=== PATIENT | male | born 1970 | race Caucasian/White ===

== ENCOUNTER 2017-12-22 21:02 | Emergency (ER) | payer OTHER ==
[2017-12-22] MEDS ORDERED: BABY ASPIRIN 81 MG CHEW PO ONE (21:15)
[2017-12-22 21:37] LABS: BASOPHIL % 0.5 % (0.0-0.4); Basophil (Absolute #) 0.04 (0-0.4); Eosinophil % 4.3 % (0.00-5.0); Eosinophil (Absolute #) 0.37 (0-0.5); Granulocyte Absolute (ANC) 4.23 (1.4-6.9); Granulocytes % 49.8 % (36.0-66.0); Hematocrit 44.4 % (42-50); Hemoglobin 14.4 gm/dl (12.5-18.0); Lymphocyte (Absolute #) 2.93 (1.0-4.6); Lymphocytes % 34.4 % (24.0-44.0); Mean Corpuscular Hemoglobin 26.9 pg (26-32); Mean Corpuscular Hgb Concent. 32.4 g/dl (32-36); Mean Platelet Volume 10.6 fl (6-9.5); Monocyte (Absolute #) 0.94 (0.0-1.3); Platelet Count 248 K/mm3 (150-450); Red Blood Count 5.35 M/mm3 (4.1-5.6); White Blood Count 8.5 K/mm3 (4.0-10.5)
--- NOTE | 2017-12-22 21:40 | ERPHSYRPT ---
- History of Present Illness Time Seen by Provider: 12/22/17 21:36 Historian: patient Exam Limitations: no limitations Patient Subjective Stated Complaint: Chest Pain with radiation into left side of neck x2 days. Triage Nursing Assessment: Pt presents to the ED with complaints of chest pressure, center of chest x2 days with radiation into left side of neck. Pt states hx of chest pain but states pain does not normally radiate into neck. Pt denies SOB, Nausea or vomiting. Pt denies other pains or complaints at this time. Skin PWD, no distress noted. Physician History: This is a 47-year-old white male with history of high blood pressure diabetes, hyperlipidemia He arrives with complaint of intermittent pain in his left anterior chest described as "like somebody hit me with a hammer" also described as sharp intermittently occurring over the last week worse past 2 days it has been radiating up to the left side of his neck is no shortness of breath he does state he has some nausea. He states this occurred just prior to arrival and stopped shortly after arriving. Past medical history includes high blood pressure, diabetes he states he is not taking anything for this at this time and hyperlipidemia. Past surgical history includes cystoscopy, and urethral myotomy Social history occasional alcohol use former smoker denies illicit drugs. Activities at Onset: none Quality: sharpness, other (feels like hit with a hammer) Chest Pain Radiation: neck Severity of Pain-Max: moderate Severity of Pain-Current: none Modifying Factors: Improves With: other (patient feels like the pain has been occuring with activity lataly) Associated Symptoms: nausea, No vomiting, No palpitations, No heartburn, No abdominal pain, No shortness of breath, No cough, No hurts to breathe, No diaphoresis, No chills, No fever, No fatigue, No weakness, No swelling/lump in chest, No syncope, No rash, No headache, No dizziness, No edema, No back pain Nitro Today/Relief: no nitro taken today Aspirin Treatment Today: 81 mg x 4, provided by ED Allergies/Adverse Reactions: No Known Drug Allergies Allergy (Unverified 12/22/17 21:14) Home Medications: Amlodipine Besylate [Amlodipine Besylate] 10 mg PO DAILY 12/22/17 [History] Benazepril HCl [Benazepril HCl] 10 mg PO DAILY 12/22/17 [History] Tamsulosin HCl [Tamsulosin HCl] 0.4 mg PO DAILY 12/22/17 [History] Hx Tetanus, Diphtheria Vaccination/Date Given: No Hx Influenza Vaccination/Date Given: Yes Hx Pneumococcal Vaccination/Date Given: No Immunizations Up to Date: No - Review of Systems Constitutional: No Fever, No Chills Eyes: No Symptoms Ears, Nose, & Throat: No Symptoms Respiratory: No Cough, No Dyspnea Cardiac: Chest Pain Abdominal/Gastrointestinal: Nausea, No Abdominal Pain, No Vomiting, No Diarrhea , No Constipation, No Hematemesis, No Hematochezia, No Melena, No Dysphagia, No Appetite Changes Genitourinary Symptoms: No Dysuria Musculoskeletal: No Back Pain, No Neck Pain Skin: No Rash Neurological: No Dizziness, No Focal Weakness, No Sensory Changes Psychological: No Symptoms Endocrine: No Symptoms All Other Systems: Reviewed and Negative - Past Medical History Pertinent Past Medical History: Yes Neurological History: No Pertinent History ENT History: No Pertinent History Cardiac History: Hypertension Respiratory History: No Pertinent History Endocrine Medical History: Diabetes Type II Musculoskeletal History: No Pertinent History GI Medical History: No Pertinent History History: No Pertinent History Psycho-Social History: No Pertinent History Male Reproductive Disorders: No Pertinent History - Past Surgical History Past Surgical History: Yes Neuro Surgical History: No Pertinent History Cardiac: No Pertinent History Respiratory: No Pertinent History Gastrointestinal: No Pertinent History Genitourinary: No Pertinent History Musculoskeletal: Orthopedic Surgery Male Surgical History: No Pertinent History - Social History Smoking Status: Former smoker Exposure to second hand smoke: No Drug Use: none Patient Lives Alone: No - Nursing Vital Signs Nursing Vital Signs: Initial Vital Signs Temperature 98.0 F 12/22/17 21:06 Pulse Rate 73 12/22/17 21:06 Respiratory Rate 16 12/22/17 21:06 Blood Pressure 149/87 12/22/17 21:06 O2 Sat by Pulse Oximetry 100 12/22/17 21:06 Pain Scale Pain Intensity 0 - Physical Exam General Appearance: no apparent distress, alert Eye Exam: PERRL/EOMI, eyes nml inspection Ears, Nose, Throat Exam: normal ENT inspection, moist mucous membranes Neck Exam: normal inspection, non-tender, supple, full range of motion Respiratory Exam: normal breath sounds, lungs clear, No respiratory distress Cardiovascular Exam: regular rate/rhythm, normal heart sounds Gastrointestinal/Abdomen Exam: soft, No tenderness, No mass Back Exam: normal inspection, No CVA tenderness, No vertebral tenderness Extremity Exam: normal inspection, normal range of motion Neurologic Exam: alert, oriented x 3, cooperative, normal mood/affect, sensation nml, No motor deficits Skin Exam: normal color, warm, dry SpO2 Interpretation: normal (100%) SpO2: 100 Oxygen Delivery: Room Air - Course Nursing assessment & vital signs reviewed: Yes EKG Interpreted by Me: RATE (78 bpm), Sinus Rhythm, NORMAL AXIS, Other (EKG: Sinus rhythm, 78 bpm, normal axis, no acute ST or T wave changes, normal EKG) - Radiology Exams Chest X-ray Interpretation: Interpreted by me, Other (no acute disease process noted) Ordered Tests: Active Orders 24 hr Category Date Time Status Corporate Real Estate Manager STAT Care 12/22/17 21:16 Active EKG-ER Only STAT Care 12/22/17 21:15 Active EKG-ER Only STAT Care 12/23/17 01:26 Active IV Insertion STAT Care 12/22/17 21:15 Active CHEST 1 VIEW (PORTABLE) Stat Exams 12/22/17 21:16 Taken AMYLASE Stat Lab 12/22/17 21:31 Completed CBC W DIFF Stat Lab 12/22/17 21:31 Completed CMP Stat Lab 12/22/17 21:31 Completed D-DIMER QUANTITATION Stat Lab 12/22/17 21:31 Completed LIPASE Stat Lab 12/22/17 21:31 Completed NT PRO BNP Stat Lab 12/22/17 21:31 Completed TROPONIN Q3H Lab 12/22/17 21:31 Completed TROPONIN Q3H Lab 12/23/17 00:16 Completed TROPONIN Q3H Lab 12/23/17 03:30 Ordered TROPONIN Q3H Lab 12/23/17 06:30 Ordered TROPONIN Q3H Lab 12/23/17 09:30 Ordered Medication Summary Discontinued Medications Generic Name Dose Route Start Last Admin Trade Name Freq PRN Reason Stop Dose Admin Aspirin 324 mg 12/22/17 21:15 12/22/17 21:26 Baby Aspirin 81 Mg Chew PO 12/22/17 21:16 324 mg STAT ONE Administration Lab/Rad Data: Laboratory Result Diagrams 12/22/17 21:31 12/22/17 21:31 Laboratory Results 12/23/17 12/22/17 12/22/17 Range/Units 00:16 21:31 21:31 WBC (4.0-10.5) K/mm3 RBC (4.1-5.6) M/mm3 Hgb (12.5-18.0) gm/dl Hct (42-50) % MCV (78-100) fl MCH (26-32) pg MCHC (32-36) g/dl RDW (11.5-14.0) % Plt Count (150-450) K/mm3 MPV (6-9.5) fl Gran % (36.0-66.0) % Lymphocytes % (24.0-44.0) % Monocytes % (0.0-12.0) % Eosinophils % (0.00-5.0) % Basophils % (0.0-0.4) % Basophils # (0-0.4) D-Dimer 256.47 (215-500) ng/mL Sodium (137-145) mmol/L Potassium (3.5-5.1) mmol/L Chloride (98-107) mmol/L Carbon Dioxide (22-30) mmol/L Anion Gap (5-15) MEQ/L BUN (9-20) mg/dL Creatinine (0.66-1.25) mg/dL Estimated GFR ML/MIN Glucose (74-106) mg/dL Calcium (8.4-10.2) mg/dL Total Bilirubin (0.2-1.3) mg/dL AST (17-59) U/L ALT (0-50) U/L Alkaline Phosphatase (38-126) U/L Troponin I < 0.012 < 0.012 (0.000-0.034) ng/mL NT-Pro-B Natriuret Pep (0-450) pg/mL Serum Total Protein (6.3-8.2) g/dL Albumin (3.5-5.0) g/dL Amylase (30-110) U/L Lipase (23-300) U/L 14/18 /14/18 Range/Units 21:31 21:31 WBC 8.5 (4.0-10.5) K/mm3 RBC 5.35 (4.1-5.6) M/mm3 Hgb 14.4 (12.5-18.0) gm/dl Hct 44.4 (42-50) % MCV 83.0 (78-100) fl MCH 26.9 (26-32) pg MCHC 32.4 (32-36) g/dl RDW 13.0 (11.5-14.0) % Plt Count 248 (150-450) K/mm3 MPV 10.6 H (6-9.5) fl Gran % 49.8 (36.0-66.0) % Lymphocytes % 34.4 (24.0-44.0) % Monocytes % 11.0 (0.0-12.0) % Eosinophils % 4.3 (0.00-5.0) % Basophils % 0.5 (0.0-0.4) % Basophils # 0.04 (0-0.4) D-Dimer (215-500) ng/mL Sodium 142 (137-145) mmol/L Potassium 4.2 (3.5-5.1) mmol/L Chloride 104 (98-107) mmol/L Carbon Dioxide 26 (22-30) mmol/L Anion Gap 16.2 H (5-15) MEQ/L BUN 15 (9-20) mg/dL Creatinine 0.87 (0.66-1.25) mg/dL Estimated GFR > 60 ML/MIN Glucose 106 (74-106) mg/dL Calcium 9.6 (8.4-10.2) mg/dL Total Bilirubin 0.40 (0.2-1.3) mg/dL AST 57 (17-59) U/L ALT 92 H (0-50) U/L Alkaline Phosphatase 80 (38-126) U/L Troponin I (0.000-0.034) ng/mL NT-Pro-B Natriuret Pep 50.6 (0-450) pg/mL Serum Total Protein 8.1 (6.3-8.2) g/dL Albumin 4.6 (3.5-5.0) g/dL Amylase 61 (30-110) U/L Lipase 91 (23-300) U/L - Progress Progress: improved Air Movement: fair Progress Note: 12/22/17 23:03 This is a 47-year-old white male who has been having several days of intermittent pain in his anterior chest he has had pain radiating to his neck from the chest today. Pain was approximately half an hour prior to arrival today. Patient does not have any shortness of breath he did have some nausea. Patient's EKG chest x-ray and labs are negative patient is pain-free at this time he has been given aspirin 324 mg orally. I have discussed the whether the patient would stay 3 hours as needed for repeat troponin or considered discussing patient with patient's family doctor for consideration of observation for serial troponins The patient is not interested in observation at this time but is willing to stay for repeat troponin. Will plan to get 3 hours after last draw. Patient stable at this time 12/23/17 01:28 Patient with no further pain repeat troponin within normal limits. Plan on discharging patient. Patient does not want any pain medication. Patient's states that the patient has been having this problem for quite some time. Will plan to be released patient patient return home rest plenty of fluids. Patient to follow-up with Dr. Tyson, his family doctor. Return for acute distress or for severe symptoms. 12/23/17 01:32 Repeat EKG time December 23, 2017 at 1:31 AM Normal sinus rhythm [address] or T wave changes normal EKG normal axis - Departure Time of Disposition: 01:33 Departure Disposition: Home Clinical Impression: Chest pain Qualifiers: Chest pain type: unspecified Qualified Code(s): R07.9 - Chest pain, unspecified Condition: Fair Critical Care Time: No Referrals: DIANNE TYSON [Primary Care Provider] - Additional Instructions: Return home. Rest, plenty of fluids. Follow-up with your family doctor. Call tomorrow and schedule a follow-up appointment. Your x-rays have been preliminarily read they will be reread in the morning you' ll be contacted if any discrepancies are noted return for acute distress or for severe symptoms..
[2017-12-22 21:53] LABS: ALBUMIN 4.6 g/dL (3.5-5.0); ALKALINE PHOSPHATASE 80 U/L (38-126); AMYLASE 61 U/L (30-110); ANION GAP 16.2 MEQ/L (5-15); BLOOD UREA NITROGEN 15 mg/dL (9-20); CHLORIDE 104 mmol/L (98-107); Calcium 9.6 mg/dL (8.4-10.2); Carbon Dioxide 26 mmol/L (22-30); Creatinine 1 0.87 mg/dL (0.66-1.25); Glucose 106 mg/dL (74-106); LIPASE 91 U/L (23-300); Potassium 4.2 mmol/L (3.5-5.1); SGOT/AST 57 U/L (17-59); SGPT/ALT 92 U/L (0-50); SODIUM 142 mmol/L (137-145); Total Protein 8.1 g/dL (6.3-8.2)
[2017-12-22 22:02] LABS: NT PRO BNP 50.6 pg/mL (0-450)
[2017-12-23 01:33] VITALS: O2SAT 100
[2017-12-23 01:34] VITALS: BP 120/75; PULSE 63
--- NOTE | 2017-12-23 08:47 | XRAY ---
Indication: Chest pain. Comparison: August 15, 2014. Portable chest again demonstrates normal heart and lungs with a few incidental calcified granulomas. Bony thorax intact. No new/acute findings.
== END 2017-12-23 01:40 | disposition home or self-care (01) ==
LOC: ED 21:02
DX: R07.9 Chest pain, unspecified (principal); R11.0 Nausea
CPT/HCPCS: 36000; 36415; 71045; 80053; 82150; 83690; 83880; 84484; 85025; 85379; 93005; 93041; 99284; A9270-GY

== ENCOUNTER 2020-07-30 15:26 | Emergency (ER) | payer OTHER ==
--- NOTE | 2020-07-30 15:36 | ERPHSYRPT ---
- History of Present Illness Time Seen by Provider: 07/30/20 15:30 Historian: patient Exam Limitations: no limitations Physician History: Patient is a 50-year-old male presents to our ED with complaints of chest pain for 2 days. Chest pain localized to left chest. Chest pain was initially intermittent however now it is constant. Patient is mildly nauseous. No vomit ing. No fever. No trauma. Symptoms are mild to moderate in intensity. Patient declined pain medication. Patient voices no other complaints or concerns at this time. Timing/Duration: day(s) (2 days) Activities at Onset: none Quality: aching Location: other (Left chest) Chest Pain Radiation: no radiation Severity of Pain-Max: moderate Severity of Pain-Current: mild Modifying Factors: Improves With: nothing Associated Symptoms: nausea, No vomiting, No fever, No weakness, No dizziness Prior Chest Pain/Cardiac Workup: no prior chest pain Nitro Today/Relief: no nitro taken today Aspirin Treatment Today: no aspirin today Allergies/Adverse Reactions: No Known Drug Allergies Allergy (Verified 07/30/20 15:36) Home Medications: Amlodipine Besylate 10 mg PO DAILY 12/22/17 [History] Benazepril HCl 10 mg PO DAILY 12/22/17 [History] Atorvastatin Calcium 1 ea DAILY 07/30/20 [History] Metoprolol Succinate 25 mg DAILY 07/30/20 [History] Testosterone [Natesto] 2 ea WEEKLY 07/30/20 [History] Hx Tetanus, Diphtheria Vaccination/Date Given: No Hx Influenza Vaccination/Date Given: Yes Hx Pneumococcal Vaccination/Date Given: No - Review of Systems Constitutional: No Symptoms, No Fever, No Chills Eyes: No Symptoms Ears, Nose, & Throat: No Symptoms Respiratory: No Symptoms, No Cough, No Dyspnea Cardiac: No Symptoms, No Chest Pain, No Edema, No Syncope Abdominal/Gastrointestinal: No Symptoms, No Abdominal Pain, No Nausea, No Vomiting, No Diarrhea Genitourinary Symptoms: No Symptoms, No Dysuria Musculoskeletal: No Symptoms, No Back Pain, No Neck Pain Skin: No Symptoms, No Rash Neurological: No Symptoms, No Dizziness, No Focal Weakness, No Sensory Changes Psychological: No Symptoms Endocrine: No Symptoms Hematologic/Lymphatic: No Symptoms Immunological/Allergic: No Symptoms All Other Systems: Reviewed and Negative - Past Medical History Pertinent Past Medical History: Yes Neurological History: No Pertinent History ENT History: No Pertinent History Cardiac History: Hypertension Respiratory History: No Pertinent History Endocrine Medical History: Diabetes Type II Musculoskeletal History: No Pertinent History GI Medical History: No Pertinent History History: No Pertinent History Psycho-Social History: No Pertinent History Male Reproductive Disorders: No Pertinent History - Past Surgical History Past Surgical History: Yes Neuro Surgical History: No Pertinent History Cardiac: No Pertinent History Respiratory: No Pertinent History Gastrointestinal: No Pertinent History Genitourinary: No Pertinent History Musculoskeletal: Orthopedic Surgery Male Surgical History: No Pertinent History - Social History Smoking Status: Former smoker Exposure to second hand smoke: No Drug Use: none Patient Lives Alone: No - Nursing Vital Signs Nursing Vital Signs: Initial Vital Signs Temperature 98.8 F 07/30/20 15:27 Pulse Rate 80 07/30/20 15:27 Respiratory Rate 16 07/30/20 15:27 Blood Pressure 123/78 07/30/20 15:27 O2 Sat by Pulse Oximetry 97 07/30/20 15:27 Pain Scale Pain Intensity 4 - Physical Exam General Appearance: no apparent distress, alert Eye Exam: PERRL/EOMI, eyes nml inspection Ears, Nose, Throat Exam: normal ENT inspection, moist mucous membranes Neck Exam: normal inspection, non-tender, supple, full range of motion Respiratory Exam: normal breath sounds, lungs clear, No respiratory distress Cardiovascular Exam: regular rate/rhythm, normal heart sounds Gastrointestinal/Abdomen Exam: soft, No tenderness, No mass Back Exam: normal inspection, No CVA tenderness, No vertebral tenderness Extremity Exam: normal inspection, normal range of motion Neurologic Exam: alert, oriented x 3, cooperative, normal mood/affect, sensation nml, No motor deficits Skin Exam: normal color, warm, dry SpO2 Interpretation: normal SpO2: 97 O2 Delivery: Room Air - Course Nursing assessment & vital signs reviewed: Yes EKG Interpreted by Me: RATE (86), Sinus Rhythm, NORMAL AXIS, NORMAL INTERVALS - Radiology Exams Shoulder X-ray Interpretation: Teleradiologist Report (No acute findings.) Ordered Tests: Active Orders 24 hr Category Date Time Status Vtc Technician STAT Care 07/30/20 15:33 Active EKG-ER Only STAT Care 07/30/20 15:32 Active IV Insertion STAT Care 07/30/20 15:32 Active Pulse Oximetry (ED) STAT Care 07/30/20 15:32 Active CHEST 1 VIEW (PORTABLE) Stat Exams 07/30/20 15:34 Completed CBC W DIFF Stat Lab 07/30/20 15:35 Completed CMP Stat Lab 07/30/20 15:35 Completed CULTURE,URINE Stat Lab 07/30/20 16:50 Received MAGNESIUM Stat Lab 07/30/20 15:35 Completed NT PRO BNP Stat Lab 07/30/20 15:35 Completed TROPONIN Q3H Lab 07/30/20 15:35 Completed TROPONIN Q3H Lab 07/30/20 18:45 Ordered TROPONIN Q3H Lab 07/30/20 21:45 Ordered TROPONIN Q3H Lab 07/31/20 00:45 Ordered TROPONIN Q3H Lab 07/31/20 03:45 Ordered UA W/RFX UR CULTURE Stat Lab 07/30/20 16:50 Completed Medication Summary Discontinued Medications Generic Name Dose Route Start Last Admin Trade Name Freq PRN Reason Stop Dose Admin Aspirin 243 mg 07/30/20 16:16 07/30/20 16:30 Baby Aspirin 81 Mg Chew PO 07/30/20 16:17 243 mg STAT ONE Administration Lab/Rad Data: Laboratory Result Diagrams 07/30/20 15:35 07/30/20 15:35 Laboratory Results 07/30/20 07/30/20 07/30/20 Range/Units 16:50 15:35 15:35 WBC (4.0-10.5) K/mm3 RBC (4.1-5.6) M/mm3 Hgb (12.5-18.0) gm/dl Hct (42-50) % MCV (78-100) fl MCH (26-32) pg MCHC (32-36) g/dl RDW (11.5-14.0) % Plt Count (150-450) K/mm3 MPV (7.5-11.0) fl Gran % (36.0-66.0) % Eos # (Auto) (0-0.5) Absolute Lymphs (auto) (1.0-4.6) Absolute Monos (auto) (0.0-1.3) Lymphocytes % (24.0-44.0) % Monocytes % (0.0-12.0) % Eosinophils % (0.00-5.0) % Basophils % (0.0-0.4) % Absolute Granulocytes (1.4-6.9) Basophils # (0-0.4) Sodium 137 (137-145) mmol/L Potassium 4.0 (3.5-5.1) mmol/L Chloride 102 (98-107) mmol/L Carbon Dioxide 28 (22-30) mmol/L Anion Gap 11.8 (5-15) MEQ/L BUN 14 (9-20) mg/dL Creatinine 0.80 (0.66-1.25) mg/dL Estimated GFR > 60.0 ML/MIN Glucose 138 H (74-106) mg/dL Calcium 9.3 (8.4-10.2) mg/dL Magnesium 2.0 (1.6-2.3) mg/dL Total Bilirubin 0.70 (0.2-1.3) mg/dL AST 50 (17-59) U/L ALT 70 H (0-50) U/L Alkaline Phosphatase 75 (38-126) U/L Troponin I < 0.012 (0.000-0.034) ng/mL NT-Pro-B Natriuret Pep 30.3 (0-900) pg/mL Serum Total Protein 7.8 (6.3-8.2) g/dL Albumin 4.5 (3.5-5.0) g/dL Urine Color KEE (YELLOW) Urine Appearance SLIGHTLY CLOUDY (CLEAR) Urine pH 6.0 (5-6) Ur Specific [place] 1.017 (1.005-1.025) Urine Protein NEGATIVE (Negative) Urine Ketones NEGATIVE (NEGATIVE) Urine Blood NEGATIVE (0-5) Lv/ul Urine Nitrite NEGATIVE (NEGATIVE) Urine Bilirubin NEGATIVE (NEGATIVE) Urine Urobilinogen 2 (0-1) mg/dL Ur Leukocyte Esterase SMALL (NEGATIVE) Urine WBC (Auto) 26-50 (0-5) /HPF Urine RBC (Auto) 0-2 (0-2) /HPF U Epithel Cells (Auto) NONE (FEW) /HPF Urine Bacteria (Auto) MODERATE (NEGATIVE) /HPF Urine Mucus (Auto) SLIGHT (NEGATIVE) /HPF Urine Culture Reflexed YES (NO) Urine Glucose NEGATIVE (NEGATIVE) mg/dL 20/20 Range/Units 15:35 WBC 8.3 (4.0-10.5) K/mm3 RBC 5.94 H (4.1-5.6) M/mm3 Hgb 16.1 (12.5-18.0) gm/dl Hct 49.9 (42-50) % MCV 84.0 (78-100) fl MCH 27.1 (26-32) pg MCHC 32.3 (32-36) g/dl RDW 13.8 (11.5-14.0) % Plt Count 238 (150-450) K/mm3 MPV 10.7 (7.5-11.0) fl Gran % 61.8 (36.0-66.0) % Eos # (Auto) 0.26 (0-0.5) Absolute Lymphs (auto) 2.03 (1.0-4.6) Absolute Monos (auto) 0.85 (0.0-1.3) Lymphocytes % 24.5 (24.0-44.0) % Monocytes % 10.2 (0.0-12.0) % Eosinophils % 3.1 (0.00-5.0) % Basophils % 0.4 (0.0-0.4) % Absolute Granulocytes 5.13 (1.4-6.9) Basophils # 0.03 (0-0.4) Sodium (137-145) mmol/L Potassium (3.5-5.1) mmol/L Chloride (98-107) mmol/L Carbon Dioxide (22-30) mmol/L Anion Gap (5-15) MEQ/L BUN (9-20) mg/dL Creatinine (0.66-1.25) mg/dL Estimated GFR ML/MIN Glucose (74-106) mg/dL Calcium (8.4-10.2) mg/dL Magnesium (1.6-2.3) mg/dL Total Bilirubin (0.2-1.3) mg/dL AST (17-59) U/L ALT (0-50) U/L Alkaline Phosphatase (38-126) U/L Troponin I (0.000-0.034) ng/mL NT-Pro-B Natriuret Pep (0-900) pg/mL Serum Total Protein (6.3-8.2) g/dL Albumin (3.5-5.0) g/dL Urine Color (YELLOW) Urine Appearance (CLEAR) Urine pH (5-6) Ur Specific [place] (1.005-1.025) Urine Protein (Negative) Urine Ketones (NEGATIVE) Urine Blood (0-5) Lv/ul Urine Nitrite (NEGATIVE) Urine Bilirubin (NEGATIVE) Urine Urobilinogen (0-1) mg/dL Ur Leukocyte Esterase (NEGATIVE) Urine WBC (Auto) (0-5) /HPF Urine RBC (Auto) (0-2) /HPF U Epithel Cells (Auto) (FEW) /HPF Urine Bacteria (Auto) (NEGATIVE) /HPF Urine Mucus (Auto) (NEGATIVE) /HPF Urine Culture Reflexed (NO) Urine Glucose (NEGATIVE) mg/dL - Progress Progress: improved Air Movement: good Progress Note: 07/30/20 17:02 Patient reassessed. He feels well. No active chest pain. Initial troponin n egative. Patient EKG normal sinus rhythm. No STEMI or obvious ischemic changes. In light of patient's history of obesity, hypercholesterolemia, diabetes, age and chest pain characteristics we advised admission for cardiac rule out. Patient declined. Patient states he has responsibilities at home and cannot be admitted at this time. Patient is of sound mind. Patient is appropriate to make informed independent medical decisions. Patient understand that leaving AGAINST MEDICAL ADVICE may result in delayed diagnosis, worsening of symptoms, increased risk of morbidity, mortality, short and long-term disability. In spite of his risks patient has decided to leave AGAINST MEDICAL ADVICE. He understand that he may return to our ED at any point if he changes his mind. Patient agrees to follow-up with his primary care doctor within 48 hours for reevaluation. Patient voices no other complaints at this time. Patient will be discharged AGAINST MEDICAL ADVICE at this time per his request. 07/30/20 17:40 UA suggestive of urinary tract infection. There is a pyuria observed. Patient has no abdominal pain. We will treat for possible urinary tract infection. Prescription for ciprofloxacin for the patient's pharmacy. Patient informed. Patient voices no other complaints or concerns at this time. Blood Culture(s) Obtained: No Antibiotics given: No Counseled pt/family regarding: lab results, diagnosis, need for follow-up, rad results - Departure Departure Disposition: AMA Clinical Impression: ACS (acute coronary syndrome), Chest pain, UTI (urinary tract infection) Condition: Stable Critical Care Time: No Referrals: DIANNE FIGUEROA [Primary Care Provider] - Instructions: Chest Pain (DC) Additional Instructions: Discharge/Care Plan JUDY AGUAYOMOND was seen on 07/30/20 in the Emergency Room. The patient was counseled regarding Diagnosis,Lab results, Imaging studies, need for follow up and when to return to the Emergency Room. Prescriptions given: Discharge Note I have spoken with the patient and/or caregivers. I have explained the patient's condition, diagnosis and treatment plan based on the information available to me at this time. I have answered the patient's and/or caregiver's questions and addressed any concerns. The patient and/or caregivers have as good understanding of the patient's diagnosis, condition and treatment plan as can be expected at this point. The vital signs have been stable. The patient's condition is stable and appropriate for discharge from the emergency department. The patient will pursue further outpatient evaluation with the primary care physician or other designated or consulting physician as outlined in the discharge instructions. The patient and/or caregivers are agreeable to this plan of care and follow-up instructions have been explained in detail. The patient and/or caregivers have received these instruction. The patient/and or caregivers are aware that any significant change in condition or worsening of symptoms shou ld prompt an immediate return to this or the closest emergency department or call 911. Prescriptions: Ciprofloxacin [Cipro 500 MG] 500 mg PO BID 7 Days #14 tablet
[2020-07-30 15:51] LABS: Absolute Neutrophil Ct (ANC) 5.13 (1.4-6.9); BASOPHIL % 0.4 % (0.0-0.4); Basophil (Absolute #) 0.03 (0-0.4); Eosinophil % 3.1 % (0.00-5.0); Eosinophil (Absolute #) 0.26 (0-0.5); Hematocrit 49.9 % (42-50); Hemoglobin 16.1 gm/dl (12.5-18.0); Lymphocyte (Absolute #) 2.03 (1.0-4.6); Lymphocytes % 24.5 % (24.0-44.0); Mean Corpuscular Hemoglobin 27.1 pg (26-32); Mean Corpuscular Hgb Concent. 32.3 g/dl (32-36); Mean Platelet Volume 10.7 fl (7.5-11.0); Monocyte (Absolute #) 0.85 (0.0-1.3); Monocytes % 10.2 % (0.0-12.0); Neutrophil % 61.8 % (36.0-66.0); Platelet Count 238 K/mm3 (150-450); Red Blood Count 5.94 M/mm3 (4.1-5.6); Red Cell Distribution Width 13.8 % (11.5-14.0); White Blood Count 8.3 K/mm3 (4.0-10.5)
[2020-07-30 16:11] LABS: ALBUMIN 4.5 g/dL (3.5-5.0); ALKALINE PHOSPHATASE 75 U/L (38-126); ANION GAP 11.8 MEQ/L (5-15); BLOOD UREA NITROGEN 14 mg/dL (9-20); CHLORIDE 102 mmol/L (98-107); Calcium 9.3 mg/dL (8.4-10.2); Carbon Dioxide 28 mmol/L (22-30); EST GLOMERULAR FILTRATION RATE > 60.0 ML/MIN; Glucose 138 mg/dL (74-106); NT PRO BNP 30.3 pg/mL (0-900); SGOT/AST 50 U/L (17-59); SGPT/ALT 70 U/L (0-50); SODIUM 137 mmol/L (137-145); Total Protein 7.8 g/dL (6.3-8.2)
[2020-07-30] MEDS ORDERED: BABY ASPIRIN 81 MG CHEW PO ONE (16:16)
--- NOTE | 2020-07-30 16:27 | XRAY ---
Indication: Chest pain. Comparison: November 13, 2019. Portable chest again demonstrates normal heart and lungs. Bony thorax intact with mild degenerative changes. No new/acute findings.
[2020-07-30 17:09] VITALS: BP 130/68; PULSE 78
[2020-07-30 17:25] LABS: Appearance SLIGHTLY CLOUDY (CLEAR); Bacteria MODERATE /HPF (NEGATIVE); Bilirubin NEGATIVE (NEGATIVE); Blood NEGATIVE Ery/ul (0-5); Glucose NEGATIVE (NEGATIVE); Ketones NEGATIVE (NEGATIVE); Leukocyte Esterase SMALL (NEGATIVE); Mucus SLIGHT /HPF (NEGATIVE); Nitrite NEGATIVE (NEGATIVE); Protein,Urine Dip NEGATIVE (Negative); RBC 0-2 /HPF (0-2); Specific Gravity 1.017 (1.005-1.025); Urobilinogen 2 mg/dL (0-1); WBC 26-50 /HPF (0-5)
[2020-07-30 17:41] VITALS: O2SAT 97
== END 2020-07-30 17:44 | disposition home or self-care (01) ==
LOC: ED 15:26
DX: I24.9 Acute ischemic heart disease, unspecified (principal); R07.9 Chest pain, unspecified; N39.0 Urinary tract infection, site not specified; E11.9 Type 2 diabetes mellitus without complications
CPT/HCPCS: 36000; 36415; 71045; 80053; 81001; 83735; 83880; 84484; 85025; 87077; 87086; 87186; 93005; 93041; 94760; 99284; A9270-GY

== ENCOUNTER 2021-12-20 04:05 | Emergency (ER) | payer OTHER ==
--- NOTE | 2021-12-20 04:40 | ERPHSYRPT ---
- History of Present Illness Source: patient, EMS Exam Limitations: other (Poor historian) Patient Subjective Stated Complaint: Patient is c/o left hip pain. Indicates that pain is not new and that he was here for x-rays approx 10-12 days ago and has an appointment with Dr. Banegas on 12/22/21 at 0900 for this pain issue. Patient's pain was originally a #7 when the ambulance picked him up but is a #2 here at the ED at this time. Denies any falls or injuries to area of pain. Triage Nursing Assessment: Patient arrived to ED in ambulance and then ambulated unassisted to room from the ambulance. Patient refused to be brought in on a cot. Patient ambulated with a slow and unsteady gait. 1+ edema noted to left foot/ankle. Left pedal pulse present. Patient is sitting up in a chair in his room; refused to lay on bed. Timing/Duration: other (2 wks) Method of Injury: unknown Modifying Factors: Improves With: movement Associated Symptoms: No fever, No chills, No sweating, No urinary incontinence, No loss of bowel control, No constipation, No nausea, No vomiting, No problems urinating, No light-headedness, No dizziness, No numbness in legs/feet, No weakness, No sensory/motor loss, No tingling in legs/feet, No lower back pain, No muscle spasms Previous symptoms: same symptoms as today Allergies/Adverse Reactions: No Known Drug Allergies Allergy (Verified 12/20/21 04:07) Home Medications: Atorvastatin Calcium [Lipitor] 1 tab PO HS 12/20/21 [History] Benazepril HCl [Lotensin] 1 tab PO DAILY 12/20/21 [History] Carvedilol Phosphate [Carvedilol ER] 1 tab PO DAILY 12/20/21 [History] Clopidogrel Bisulfate 75 mg [PLAVIX 75 MG Tablet] 1 tab PO DAILY 12/20/21 [History] Pantoprazole Sodium 1 tab PO DAILY 12/20/21 [History] Testosterone Cypionate 1 ml IM 14 12/20/21 [History] Hx Tetanus, Diphtheria Vaccination/Date Given: No (Maybe Not tetanus) Hx Influenza Vaccination/Date Given: No Hx Pneumococcal Vaccination/Date Given: No Immunizations Up to Date: Yes Travel Risk - International Travel Have you traveled outside of the country in past 3 weeks: No - Coronavirus Screening Are you exhibiting any of the following symptoms?: No Close contact with a COVID-19 positive Pt in past 14-21 Days: No - Vaccine Status Have you recieved a Covid-19 vaccination: Yes 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 - Vaccination Dates Date of 2cond Vaccination (if applicable): Not yet - Review of Systems Constitutional: No Symptoms Eyes: No Symptoms Ears, Nose, & Throat: No Symptoms Respiratory: No Symptoms Cardiac: No Symptoms Abdominal/Gastrointestinal: No Symptoms Genitourinary Symptoms: No Symptoms Musculoskeletal: No Symptoms, Arthralgias Skin: No Symptoms Neurological: No Symptoms Psychological: No Symptoms Endocrine: No Symptoms Hematologic/Lymphatic: No Symptoms Immunological/Allergic: No Symptoms - Past Medical History Pertinent Past Medical History: Yes Neurological History: No Pertinent History ENT History: No Pertinent History Cardiac History: High Cholesterol, Hypertension Respiratory History: No Pertinent History, Sleep Apnea Endocrine Medical History: Diabetes Type II Musculoskeletal History: Fractures GI Medical History: GERD History: No Pertinent History Psycho-Social History: No Pertinent History Male Reproductive Disorders: No Pertinent History Other Medical History: Lumbar fractures over 30 years ago - Past Surgical History Past Surgical History: Yes Neuro Surgical History: No Pertinent History Cardiac: Cardiac Stent Respiratory: No Pertinent History Gastrointestinal: No Pertinent History Genitourinary: No Pertinent History Musculoskeletal: Orthopedic Surgery Male Surgical History: No Pertinent History Other Surgical History: cyst removed from urethra - Social History Smoking Status: Former smoker Exposure to second hand smoke: No Drug Use: none Patient Lives Alone: No Significant Family History: no pertinent family hx - Nursing Vital Signs Nursing Vital Signs: Initial Vital Signs Temperature 97.3 F 12/20/21 04:09 Pulse Rate 81 12/20/21 04:09 Respiratory Rate 17 12/20/21 04:09 Blood Pressure 162/79 12/20/21 04:09 O2 Sat by Pulse Oximetry 97 12/20/21 04:09 Pain Scale Pain Intensity 2 Hypertensive - Physical Exam General Appearance: no apparent distress (In mild-mod pain) Eye Exam: PERRL/EOMI, eyes nml inspection Ears, Nose, Throat Exam: normal ENT inspection, TMs normal, pharynx normal, moist mucous membranes Neck Exam: normal inspection, non-tender, supple, full range of motion, No meningismus, No mass, No Brudzinski, No Kernig's Respiratory Exam: normal breath sounds, lungs clear, airway intact Cardiovascular Exam: regular rate/rhythm, normal heart sounds, normal peripheral pulses, capillary refill <2 sec, No murmur Gastrointestinal Exam: soft, normal bowel sounds, No tenderness Back Exam: point tenderness (Pt minimally TTP over L SI joint which is where pain is centered), No vertebral tenderness Extremity Exam: normal inspection, normal range of motion Neurologic Exam: alert, oriented x 3, cooperative, 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, normal mood/affect, nml cerebellar function, nml station & gait, sensation nml Skin Exam: normal color, warm, dry Lymphatic Exam: No adenopathy SpO2 Interpretation: normal SpO2: 97 O2 Delivery: Room Air - CT Exams Pelvis CT Interpretation: Tele-radiologist Report (L5-S1 osteophytes w mild-moderate canal stenosis/L4-L5 facet hypertrophy w mild central canal stenosis) Lumbar Spine CT Interpretation: Tele-radiologist Report (3cm lesion upper pole of L kidney/Chronic L1 wedging/L5-S1 disc bulge w mild-mod central stenosis) Ordered Tests: Active Orders 24 hr Category Date Time Status LUMBAR SPINE W/O [CT] Stat Exams 12/20/21 04:51 Taken PELVIS WITHOUT CONTRAST [CT] Stat Exams 12/20/21 04:33 Taken Medication Summary Discontinued Medications Generic Name Dose Route Start Last Admin Trade Name Luiza PRN Reason Stop Dose Admin Ketorolac Tromethamine 60 mg 12/20/21 04:50 12/20/21 05:01 Ketorolac Tromethamine 30 Mg/Ml Inj IM 12/20/21 04:51 60 mg STAT ONE Administration Ketorolac Tromethamine Confirm 12/20/21 04:51 Ketorolac Tromethamine 30 Mg/Ml Inj Administered 12/20/21 04:52 Dose 60 mg .ROUTE .STK-MED ONE - Progress Progress: improved Progress Note: 12/20/21 06:01 60mg IM Toradol w improvement 12/20/21 06:03 Inspect neg 12/20/21 06:[address] reports given to pt Counseled pt/family regarding: diagnosis, need for follow-up, rad results - Departure Departure Disposition: Home Clinical Impression: Spinal stenosis of lumbar region, Renal lesion Condition: Stable Critical Care Time: No Referrals: DIANNE TYSON [Primary Care Provider] - Follow up/PCP as directed Instructions: Spinal Stenosis, Low Back Pain (DC) Additional Instructions: Keep your appointment with orthopedic surgeon on Wednesday Follow up with Dr. Tyson about left kidney lesion Lodine as needed for pain Prescriptions: Etodolac 400 mg [Lodine 400 mg] 400 mg PO BID PRN #10 tablet PRN Reason: Pain
[2021-12-20] MEDS ORDERED: TORAdol 30 mg Injection IM ONE (04:50)
[2021-12-20] MEDS ORDERED: TORAdol 30 mg Injection ONE (04:51)
[2021-12-20 06:04] VITALS: O2SAT 97
[2021-12-20 06:45] VITALS: BP 130/74; PULSE 74
--- NOTE | 2021-12-20 07:27 | XRAY ---
Indication: Low back pain and left hip pain 2 weeks. Left foot numbness. Multiple contiguous axial images obtained through the lumbar spine. Sagittal and coronal reformatted images obtained. Comparison: None. Axial images demonstrates multilevel bridging/nonbridging thoracolumbar endplate spurring and mild/moderate bilateral L4-S1 degenerative facet hypertrophy moderate T12-S1 broad-based disc bulge greatest at L5-S1 where there is degenerative vacuum disc phenomena and spinal canal stenosis with mean AP thecal sac diameter 7 mm and bilateral foraminal stenosis. Similar findings seen at L4-L5 level. Sagittal and coronal reformatted images demonstrates mild/moderate levoscoliosis centered at L1, remote L1 superior endplate fracture with approximately 50% height loss, and multilevel disc space narrowing greatest at L5-S1. No acute compression fracture or subluxation. Visualized noncontrasted soft tissues demonstrates minimal aortoiliac calcifications and 3 cm left upper pole/1.3 cm right upper pole exophytic renal cysts. Impression: 1. Multilevel degenerative disc disease greatest at L5-S1. Outpatient MRI may yield further information. 2. Remote L1 endplate fracture and levoscoliosis. 3. Incidental bilateral renal cysts. Comment: Preliminary interpretation made by [facility]. No critical discrepancy.
--- NOTE | 2021-12-20 07:31 | XRAY ---
Indication: Low back pain and left hip pain 2 weeks. Left foot numbness.. Multiple contiguous axial images obtained through the pelvis with special attention to the osseous structures. Sagittal and coronal reformatted images obtained. Comparison: None CT lumbar spine reported severally. Moderate degenerative changes of both hips and right SI joint. No acute fracture, dislocation, or suspicious bone lesions. Visualized noncontrasted soft tissues demonstrates scattered colonic diverticulosis, mild scattered arteriosclerotic calcifications, and small fatty left inguinal hernia. Impression: 1. Degenerative changes both hips and right SI joint. 2. Colonic diverticulosis and small fatty left inguinal hernia. 3. Remaining CT pelvis without contrast exam is negative Comment: Preliminary interpretation made by [facility]. No critical discrepancy.
== END 2021-12-20 06:44 | disposition home or self-care (01) ==
LOC: ED 04:05
DX: M48.061 Spinal stenosis, lumbar region without neurogenic claudication (principal); N28.9 Disorder of kidney and ureter, unspecified; E78.5 Hyperlipidemia, unspecified; I10 Essential (primary) hypertension; E11.9 Type 2 diabetes mellitus without complications; K21.9 Gastro-esophageal reflux disease without esophagitis; Z79.01 Long term (current) use of anticoagulants
CPT/HCPCS: 72131; 72192; 96372; 99284; J1885

== ENCOUNTER 2022-03-13 00:46 | Emergency (ER) | payer OTHER ==
[2022-03-13] MEDS ORDERED: NEOSYNEPHRINE 0.5% NASAL SPRAY/DROPS ONE (00:53)
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
[2022-03-13] MEDS ORDERED: NEOSYNEPHRINE 0.5% NASAL SPRAY/DROPS NS ONE (00:59)
[2022-03-13] MEDS ORDERED: KEFLEX 500 MG PO ONE (01:53)
[2022-03-13] MEDS ORDERED: KEFLEX 500 MG ONE (01:58)
[2022-03-13] MEDS ORDERED: NORCO 5/325 MG PO ONE (02:12)
[2022-03-13] MEDS ORDERED: NORCO 5/325 MG ONE (02:13)
[2022-03-13 02:50] VITALS: BP 145/87; PULSE 81; O2SAT 97
== END 2022-03-13 02:45 | disposition home or self-care (01) ==
LOC: ED 00:46
DX: R04.0 Epistaxis (principal); E78.5 Hyperlipidemia, unspecified; I10 Essential (primary) hypertension; J44.9 Chronic obstructive pulmonary disease, unspecified; E11.9 Type 2 diabetes mellitus without complications; Z86.16 Personal history of COVID-19; Z79.02 Long term (current) use of antithrombotics/antiplatelets; Z79.899 Other long term (current) drug therapy; Z28.310 Unvaccinated for COVID-19
CPT/HCPCS: 30905; 99283; A9270-GY

== ENCOUNTER 2023-03-13 16:59 | Emergency (ER) | payer OTHER ==
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
[2023-03-13] MEDS ORDERED: Sodium Chloride 0.9% 1000 ML 1,000 ML IV STA (17:29)
[2023-03-13] MEDS ORDERED: Sodium Chloride 0.9% 1000 ML 1,000 ML ONE (17:47)
[2023-03-13 18:14] LABS: Absolute Neutrophil Ct (ANC) 7.77 x10^3/uL (1.4-6.9); BASOPHIL % 0.5 % (0.0-0.4); Basophil (Absolute #) 0.05 x10^3/uL (0-0.4); Eosinophil % 2.1 % (0.00-5.0); Eosinophil (Absolute #) 0.21 x10^3/uL (0-0.5); Hematocrit 45.2 % (42-50); Hemoglobin 14.4 g/dL (12.5-18.0); IMMATURE GRAN # 0.04 x10^3u/L (0.00-0.03); IMMATURE GRAN % 0.4 % (0.00-0.4); Lymphocyte (Absolute #) 1.11 x10^3/uL (1.0-4.6); Lymphocytes % 11.1 % (24.0-44.0); Mean Cell Volume 84.8 fL (78-100); Mean Corpuscular Hgb Concent. 31.9 g/dL (32-36); Mean Platelet Volume 10.9 fL (7.5-11.0); Monocyte (Absolute #) 0.78 x10^3/uL (0.0-1.3); Monocytes % 7.8 % (0.0-12.0); Neutrophil % 78.1 % (36.0-66.0); Platelet Count 239 x10^3/uL (150-450); Red Blood Count 5.33 x10^6/uL (4.1-5.6); Red Cell Distribution Width 13.1 % (11.5-14.0)
[2023-03-13 18:24] LABS: ALBUMIN 4.7 g/dL (3.5-5.0); ANION GAP 19.1 MEQ/L (5-15); Calcium 9.3 mg/dL (8.4-10.2); Creatinine 1 1.93 mg/dL (0.66-1.25); EST GLOMERULAR FILTRATION RATE 38.8 ML/MIN; MAGNESIUM 2.4 mg/dL (1.6-2.3); Total Protein 8.7 g/dL (6.3-8.2)
[2023-03-13 19:06] LABS: Appearance Clear (Clear); Bacteria None Seen /HPF (None Seen); Bilirubin Negative (Negative); Blood Negative (Negative); Epithelial Cells Rare /HPF (None Seen); Glucose, Urine Negative (Negative); Ketones Negative (Negative); Leukocyte Esterase Trace (Negative); Nitrite Negative (Negative); Ph 5.5 (4.6-8.0); Protein,Urine Dip Trace (Negative); RBC 0-2 /HPF (0-5); Specific Gravity 1.015 (1.005-1.030)
[2023-03-13 19:07] LABS: ADD URINE CULTURE? NO (NO); Hyaline Casts 0-2 /LPF (0-2)
[2023-03-13 20:44] VITALS: BP 107/63; PULSE 74; O2SAT 95
== END 2023-03-13 20:57 | disposition left against medical advice (07) ==
LOC: ED 16:59
DX: I95.9 Hypotension, unspecified (principal); N28.9 Disorder of kidney and ureter, unspecified; E78.5 Hyperlipidemia, unspecified; I10 Essential (primary) hypertension; E11.9 Type 2 diabetes mellitus without complications; Z86.16 Personal history of COVID-19; Z79.899 Other long term (current) drug therapy
CPT/HCPCS: 36000; 36415; 80053; 81001; 83605; 83735; 83880; 84484; 85025; 93005; 93041; 96360; 99284

== ENCOUNTER 2024-08-07 19:47 | Emergency (ER) | payer OTHER ==
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
[2024-08-07 19:52] VITALS: TEMP 98
[2024-08-07 20:10] LABS: Absolute Neutrophil Ct (ANC) 3.44 x10^3/uL (1.78-5.38); BASOPHIL % 0.5 % (0.2-1.2); Basophil (Absolute #) 0.03 x10^3/uL (0.01-0.08); Eosinophil % 6.8 % (0.8-7.0); Eosinophil (Absolute #) 0.44 x10^3/uL (0.04-0.54); Hematocrit 39.8 % (40.1-51.0); IMMATURE GRAN # 0.02 x10^3u/L (0.001-0.031); IMMATURE GRAN % 0.3 % (0.001-0.429); Lymphocyte (Absolute #) 1.84 x10^3/uL (1.32-3.57); Lymphocytes % 28.6 % (21.8-53.1); Mean Cell Volume 83.6 fL (79.0-92.2); Mean Corpuscular Hemoglobin 27.3 pg (25.7-32.2); Mean Corpuscular Hgb Concent. 32.7 g/dL (32.3-36.5); Mean Platelet Volume 10.3 fL (9.4-12.4); Monocyte (Absolute #) 0.67 x10^3/uL (0.30-0.82); Monocytes % 10.4 % (5.3-12.2); Neutrophil % 53.4 % (34.0-67.9); Platelet Count 196 x10^3/uL (163-337); Red Blood Count 4.76 x10^6/uL (4.63-6.08); Red Cell Distribution Width 12.3 % (11.6-14.4); White Blood Count 6.4 x10^3/uL (4.23-9.07)
[2024-08-07] MEDS ORDERED: BABY ASPIRIN 81 MG CHEW ONE (20:11)
[2024-08-07] MEDS: BABY ASPIRIN 81 MG CHEW PO ONE (20:12)
[2024-08-07 20:25] LABS: D-DIMER QUANTITATIVE 0.23 mg/L (0.0-0.50); INR 0.94 (0.8-3.0); PROTIME 10.3 SECONDS (9.4-12.5)
[2024-08-07 20:30] LABS: ALBUMIN 4.3 g/dL (3.5-5.0); ANION GAP 13.7 MEQ/L (5-15); BILIRUBIN,TOTAL 0.4 mg/dL (0.2-1.3); Calcium 9.5 mg/dL (8.4-10.2); Creatinine 1 0.72 mg/dL (0.66-1.25); EST GLOMERULAR FILTRATION RATE 107.2 ML/MIN; Potassium 4.5 mmol/L (3.5-5.1); Total Protein 7.5 g/dL (6.3-8.2)
[2024-08-07 22:22] VITALS: O2SAT 98
[2024-08-07 23:20] VITALS: BP 142/72; PULSE 59; RESP 18
--- NOTE | 2024-08-08 08:36 | XRAY ---
Indication: Dizziness and confusion. Multiple contiguous axial images obtained of the head without contrast. Comparison: None Normal appearing brain parenchyma, ventricles, and bony calvarium for patient's age. Visualized paranasal sinuses and mastoid air cells are clear. Impression: Normal CT head without contrast exam.
--- NOTE | 2024-08-08 08:38 | XRAY ---
Indication: Left chest pain. Comparison: July 30, 2020 Portable chest less inflated accentuating cardiopulmonary structures. Lungs remain clear again with incidental right apical calcified granuloma. Heart not enlarged. Bony thorax intact again with mild degenerative changes. Impression: Continued nonacute chest with chronic features.
== END 2024-08-07 23:27 | disposition home or self-care (01) ==
LOC: ED 19:47
DX: R07.9 Chest pain, unspecified (principal); R42 Dizziness and giddiness; I10 Essential (primary) hypertension; E78.5 Hyperlipidemia, unspecified; E11.9 Type 2 diabetes mellitus without complications; Z79.899 Other long term (current) drug therapy
CPT/HCPCS: 36000; 36415; 70450; 71045; 80053; 83735; 84484; 85025; 85379; 85610; 93005; 93041; 94760; 99284; A9270-GY